=== PATIENT | male | born 1970 | race Caucasian/White ===

== ENCOUNTER → 2020-07-08 16:40 | Outpatient (CLI) | payer OTHER, SELFPAY ==
[2016-06-30 17:25] VITALS: BMI 41.1
[2020-07-08 18:54] LABS: Anion Gap 6 (5-15); BUN 18 mg/dL (7-18); BUN/Creat Ratio 15.4 RATIO (10-20); Calcium,Total 9.1 mg/dL (8.5-10.1); Chloride 104 mmol/L (98-107); Cholesterol 193 mg/dL (200); Creatinine, Serum 1.17 mg/dL (0.70-1.30); EST Glomerular Filtration Rate 70 mL/min (>60); Est Glom Filt Rate - Afr Amer 85 mL/min (>60); Glucose 92 mg/dL (74-106); High Density Lipoprotein 30 mg/dL; Potassium 3.1 mmol/L (3.5-5.1); Sodium Level 139 mmol/L (136-145); Triglycerides 206 mg/dL; Very Low Density Lipoprotein 41 mg/dL (5-40)
== END ==
LOC: MFPLAB 16:41
PROVIDERS: PCP Family Medicine; Referring Provider Family Medicine; Visit Provider Family Medicine
DX: I10 Essential (primary) hypertension (principal); E11.8 Type 2 diabetes mellitus with unspecified complications
CPT/HCPCS: 36415; 80048; 80061

== ENCOUNTER → 2020-07-22 14:27 | Outpatient (CLI) | payer OTHER, SELFPAY ==
[2016-06-30 17:25] VITALS: BMI 41.1
[2020-07-22 18:11] LABS: Anion Gap 7 (5-15); BUN 24 mg/dL (7-18); BUN/Creat Ratio 19.4 RATIO (10-20); Calcium,Total 9.3 mg/dL (8.5-10.1); Chloride 108 mmol/L (98-107); Creatinine, Serum 1.24 mg/dL (0.70-1.30); EST Glomerular Filtration Rate 66 mL/min (>60); Est Glom Filt Rate - Afr Amer 80 mL/min (>60); Glucose 84 mg/dL (74-106); Potassium 4.2 mmol/L (3.5-5.1); Sodium Level 140 mmol/L (136-145)
== END ==
PROVIDERS: PCP Family Medicine; Referring Provider Family Medicine; Visit Provider Family Medicine
DX: E87.6 Hypokalemia (principal)
CPT/HCPCS: 36415; 80048

== ENCOUNTER → 2020-10-08 11:28 | Outpatient (CLI) | payer OTHER, SELFPAY ==
[2016-06-30 17:25] VITALS: BMI 41.1
[2020-10-08 15:20] LABS: Absolute Lymphocyte Count 1.91 X10^3/uL (0.83-4.51); Absolute Neutrophil Count 4.3 X10^3/uL (2.0-7.7); Basophil# 0.01 X10^3/uL; Basophil% 0.1 % (0-1); Eosinophil# 0.11 X10^3/uL; Eosinophils% 1.6 % (0-5); Hematocrit 43.2 % (40-54); Hemoglobin 14.3 g/dL (13.0-16.5); Lymphocyte # 1.91 X10^3/ul (4.0); Lymphocyte % 27.2 % (19-41); Mean Corp Hgb Conc 33.1 g/dL (32-36); Mean Corpuscular Hgb 30.8 pg (27.0-32.0); Mean Corpuscular Volume 92.9 fL (80-94); Mean Platelet Vol. 10.1 fl (6.2-12.0); Monocyte# 0.71 X10^3/uL; Monocyte% 10.1 % (0-10); NRBC Flagged by Analyzer 0 % (0-5); Neutrophil # 4.25 X10^3/uL (2.7-7.7); Neutrophil % 60.6 % (47-70); Platelet Count 255 K/mm3 (150-450); RBC Distribution Width CV 13.7 % (11.6-14.6); Red Blood Count 4.65 M/mm3 (4.6-6.2)
[2020-10-08 15:48] LABS: Anion Gap 6 (5-15); BUN 22 mg/dL (7-18); BUN/Creat Ratio 17.7 RATIO (10-20); Calcium,Total 9.6 mg/dL (8.5-10.1); Chloride 103 mmol/L (98-107); Creatinine, Serum 1.24 mg/dL (0.70-1.30); EST Glomerular Filtration Rate 66 mL/min (>60); Est Glom Filt Rate - Afr Amer 80 mL/min (>60); Glucose 109 mg/dL (74-106); Potassium 4.1 mmol/L (3.5-5.1); Sodium Level 136 mmol/L (136-145); Thyroid Stim Hormone (TSH) 3.06 uIU/mL (0.358-3.74)
== END ==
PROVIDERS: PCP Family Medicine; Referring Provider Family Medicine; Visit Provider Family Medicine
DX: I10 Essential (primary) hypertension (principal); R20.9 Unspecified disturbances of skin sensation
CPT/HCPCS: 36415; 80048; 84443; 85025

== ENCOUNTER → 2021-05-25 15:59 | Outpatient (CLI) | payer OTHER, SELFPAY ==
[2021-05-25 18:40] LABS: PSA,Total - Annual Screen 0.69 ng/mL (0.00-4.00)
== END ==
PROVIDERS: PCP Family Medicine; Visit Provider Family Medicine
DX: Z00.00 Encounter for general adult medical examination without abnormal findings (principal); Z20.822 Contact with and (suspected) exposure to COVID-19; Z12.5 Encounter for screening for malignant neoplasm of prostate
CPT/HCPCS: 36415; 84153; 86769; G0103

== ENCOUNTER 2021-12-01 16:22 | Outpatient (CLI) | payer OTHER, SELFPAY ==
[2021-12-01 18:21] LABS: Anion Gap 7 (5-15); BUN 23 mg/dL (7-18); BUN/Creat Ratio 19.5 RATIO (10-20); Chloride 102 mmol/L (98-107); Cholesterol 169 mg/dL (200); Creatinine, Serum 1.18 mg/dL (0.70-1.30); EST Glomerular Filtration Rate 69 mL/min (>60); Est Glom Filt Rate - Afr Amer 84 mL/min (>60); Glucose 102 mg/dL (74-106); High Density Lipoprotein 31 mg/dL; Potassium 3.9 mmol/L (3.5-5.1); Sodium Level 135 mmol/L (136-145); Triglycerides 277 mg/dL; Very Low Density Lipoprotein 55 mg/dL (5-40)
== END 2021-12-01 23:59 | disposition home or self-care (01) ==
LOC: MFPLAB 16:24
PROVIDERS: PCP Family Medicine; Referring Provider Family Medicine; Visit Provider Family Medicine
DX: I10 Essential (primary) hypertension (principal)
CPT/HCPCS: 36415; 80048; 80061

== ENCOUNTER → 2022-05-28 | Outpatient (CLI) | payer OTHER, SELFPAY ==
--- NOTE | 2022-05-28 17:34 | CT_ITS ---
EXAM: CT ABDOMEN AND PELVIS WITH INTRAVENOUS CONTRAST CLINICAL INDICATION: Diverticulitis TECHNIQUE: Helically acquired images were obtained of the abdomen and pelvis with intravenous contrast. This CT exam was performed using one or more of the following dose reduction techniques: automated exposure control, adjustment of the mA and/or kV according to patient size, and/or use of iterative reconstruction technique. This report was created using Scaling[employer] report generation technology. CONTRAST: Oral and amp; IV Readi-CAT and amp; 100mL Isovue-300 COMPARISON: None. FINDINGS: LOWER THORAX: Unremarkable. Lung bases are clear. No cardiomegaly. No significant pericardial effusion. ABDOMEN: LIVER: Unremarkable. Homogeneous. No focal mass. GALLBLADDER AND BILE DUCTS: Unremarkable. No calcified gallstones. No gallbladder distention or wall edema. No intra- or extrahepatic biliary ductal dilation. PANCREAS: Unremarkable. No focal cystic or solid mass. SPLEEN: Unremarkable. Normal size without focal cystic or solid mass. ADRENALS: Unremarkable. No nodules. KIDNEYS AND URETERS: Unremarkable. Normal renal size and position. No hydronephrosis. STOMACH AND BOWEL: Diverticular disease of the colon, but there is no evidence of acute diverticulitis. No stomach or bowel distention. PELVIS: APPENDIX: The appendix is normal. BLADDER: Unremarkable. REPRODUCTIVE: Unremarkable as visualized. No mass. ABDOMEN and PELVIS: INTRAPERITONEAL SPACE: Unremarkable. No ascites or other fluid collection. No free air. BONES/JOINTS: Degenerative changes of the spine. No suspicious lytic or blastic abnormality. SOFT TISSUES: Unremarkable. No discrete abdominal or pelvic wall hernia. VASCULATURE: Unremarkable. Abdominal aorta is non-dilated. LYMPH NODES: Stranding and slightly prominent lymph nodes in the mesentery surrounding branches of the superior mesenteric vessels. CT/Abdomen/Pelvis WITH Contrast IMPRESSION: 1. Stranding and slightly prominent lymph nodes in the mesentery surrounding branches of the superior mesenteric vessels. 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 2. No evidence of diverticulitis. Electronically Signed: Melvin Leal MD at 7:37 EDT ,
[2022-05-28 18:20] LABS: CREATININE FINGERSTICK < 0.9 mg/dL (0.70-1.30); EGFR FINGERSTICK > 60.0000 mL/min (>60)
== END | disposition home or self-care (01) ==
LOC: CT 17:31
PROVIDERS: PCP Family Medicine; Visit Provider Family Medicine
DX: K57.92 Diverticulitis of intestine, part unspecified, without perforation or abscess without bleeding (principal)
CPT/HCPCS: 74177; Q9967

== ENCOUNTER → 2022-06-07 | Outpatient (CLI) | payer OTHER, SELFPAY ==
[2022-06-07 18:15] LABS: PSA,Total - Annual Screen 0.56 ng/mL (0.00-4.00)
== END | disposition home or self-care (01) ==
LOC: MFPLAB 16:11
PROVIDERS: PCP Family Medicine; Visit Provider Family Medicine
DX: Z00.00 Encounter for general adult medical examination without abnormal findings (principal); Z12.5 Encounter for screening for malignant neoplasm of prostate
CPT/HCPCS: 36415; 84153; G0103

== ENCOUNTER → 2022-12-01 | Outpatient (CLI) | payer OTHER, SELFPAY ==
[2022-12-01 18:45] LABS: Anion Gap 6 (5-15); BUN 20 mg/dL (7-18); BUN/Creat Ratio 16.8 RATIO (10-20); Calcium,Total 9.8 mg/dL (8.5-10.1); Chloride 102 mmol/L (98-107); Cholesterol 192 mg/dL (200); Creatinine, Serum 1.19 mg/dL (0.70-1.30); EST Glomerular Filtration Rate 68 mL/min (>60); Est Glom Filt Rate - Afr Amer 83 mL/min (>60); Glucose 135 mg/dL (74-106); High Density Lipoprotein 33 mg/dL; Potassium 3.7 mmol/L (3.5-5.1); Sodium Level 136 mmol/L (136-145); Thyroid Stim Hormone (TSH) 2.41 uIU/mL (0.358-3.74); Triglycerides 282 mg/dL; Very Low Density Lipoprotein 56 mg/dL (5-40)
== END | disposition home or self-care (01) ==
LOC: MFPLAB 16:36
PROVIDERS: PCP Family Medicine; Referring Provider Family Medicine; Visit Provider Family Medicine
DX: I10 Essential (primary) hypertension (principal); N52.9 Male erectile dysfunction, unspecified
CPT/HCPCS: 36415; 80048; 80061; 84443

== ENCOUNTER → 2023-01-06 | Outpatient (CLI) | payer OTHER, SELFPAY ==
--- NOTE | 2023-01-06 17:55 | CT_ITS ---
EXAM: CT ABDOMEN AND PELVIS WITH INTRAVENOUS CONTRAST CLINICAL INDICATION: ABD PAIN,MESENTERIC PANNICULITIS TECHNIQUE: Helically acquired images were obtained of the abdomen and pelvis with intravenous contrast. This CT exam was performed using one or more of the following dose reduction techniques: automated exposure control, adjustment of the mA and/or kV according to patient size, and/or use of iterative reconstruction technique. CONTRAST: IV 100mL Isovue-300 COMPARISON: 05/28/2022 FINDINGS: LOWER THORAX: Unremarkable. Lung bases are clear. No cardiomegaly. No significant pericardial effusion. ABDOMEN: LIVER: The liver is decreased in attenuation compatible with fatty infiltration. GALLBLADDER AND BILE DUCTS: Unremarkable. No calcified gallstones. No gallbladder distention or wall edema. No intra- or extrahepatic biliary ductal dilation. PANCREAS: Unremarkable. No focal cystic or solid mass. SPLEEN: Unremarkable. Normal size without focal cystic or solid mass. ADRENALS: Unremarkable. No nodules. KIDNEYS AND URETERS: Unremarkable. Normal renal size and position. No hydronephrosis. STOMACH AND BOWEL: There is sigmoid diverticulosis with minimal inflammation which may represent sigmoid diverticulitis. No stomach or bowel distention. PELVIS: APPENDIX: No evidence of acute appendicitis. BLADDER: Unremarkable. REPRODUCTIVE: Unremarkable as visualized. No mass. ABDOMEN and PELVIS: INTRAPERITONEAL SPACE: Unremarkable. No ascites or other fluid collection. No free air. BONES/JOINTS: Unremarkable. No suspicious lytic or blastic abnormality. SOFT TISSUES: Unremarkable. No discrete abdominal or pelvic wall hernia. VASCULATURE: Unremarkable. Abdominal aorta is non-dilated. LYMPH NODES: There is minimal inflammation and lymph nodes surrounding the superior mesenteric artery which is unchanged from the reference exam. CT/Abdomen/Pelvis WITH Contrast IMPRESSION: 1. Sigmoid diverticulosis with trace inflammation which may represent early diverticulitis. There is no abscess or perforation. 2. 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 This is unchanged from the reference exam. Electronically Signed: Ovidio Soria MD at 21:15 EDT ,
[2023-01-07 07:01] LABS: CREATININE FINGERSTICK 0.9 mg/dL (0.70-1.30)
[2023-01-07 07:02] LABS: EGFR FINGERSTICK > 60 mL/min (>60)
== END | disposition home or self-care (01) ==
LOC: CT 17:52
PROVIDERS: PCP Family Medicine
DX: K65.4 Sclerosing mesenteritis (principal); R10.84 Generalized abdominal pain
CPT/HCPCS: 74177; Q9967

== ENCOUNTER 2023-11-16 18:00 | Outpatient (RCR) | payer OTHER, SELFPAY ==
--- NOTE | 2023-10-19 18:36 | HP.PTEVAL_ITS ---
Patient's Visit Information Visit Information Visit Information: LIZETTE CAN is a 53 year old M referred to Physical Therapy by Dr. Nikky Sherwood MD with a diagnosis of RC tendonitis. Date of Evaluation: 10/19/23 Physical Therapist: JAVI Killian Visit Plan Frequency: 2x /Week Duration: 6 Weeks Plan: FOCUS ON POSTURE/Scapular retraction with below 90 degree RC strength 2X/ week for 6 weeks for R shoulder AROM, AAROM/PROM, scapular and postural strength, RC strength with HEP. May try US if need to decrease inflammation.... HEP: blue mid rows and ice R shoulder. Work on increasing scapular retraction with ADL's/posture etc Subjective Subjective: He is R handed. He has had a moderate pain that is there. He has complete movement. If he sleeps on his R shoulder he will have pain. He has increase popping as well. His hand has been going numb too. The pain is usually every day. On Tuesday he tried to throw something and that was a no go. He had no x-ray or MRI. He has had this order since May. He can not sleep on that shoulder. He usually sleeps in his chair so that he does not bother him. Pain R shoulder pain: Pain Intensity (Out of 10): 4 Pain Intensity Range: 7 Comment: with movement overhead Objective Objective: R handed: AROM: R flexion 142 and L 147 R ABD 140 and L 161 R ER 30 abd L 41 R IR L1 and T12 MMT R flex 17.2 and L 21 R ABD 18.1 and L 20.2 R ER 16.6 and L 15.6 R IR 19.2 and L 17.2 Tender under the R Acromion and lateral to it. Posture: rounded shoulders/anterior shoulders + HK for pain PROM L shoulder: pain at end range elevation Balance/Special Test Scores Quick DASH Score: 29.5450 Goals Goal 1:: I HEP Goal Time Frame: 6-8 Weeks Goal 2:: Sit with upright posture during treatment sessions Goal Time Frame: 6-8 Weeks Goal 3:: Decrease R shoulder pain by 50% with overhead activities Goal Time Frame: 6-8 Weeks Goal 4:: Increase R shoulder strength (at the time of the eval: R flex 17.2 and L 21 R ABD 18.1 and L 20.2 R ER 16.6 and L 15.6 R IR 19.2 and L 17.2) Goal 5:: Increase pain free R shoulder AROM (at the time of the eval: AROM: R flexion 142 and L 147 R ABD 140 and L 161 R ER 30 abd L 41 R IR L1 and T12). Rehabilitation Potential Rehabilitation Potential: Good Anticipated Interventions Patient/Client Instruction: Educate patient on: Condition and Plan of Care For the Purpose of:: To decrease pain, To decrease swelling/inflammation, To increase ROM, To improve nutrient delivery to tissue, To improve muscle performance and motor function, To improve ability to perform ADL's, To improve performance and independence with ADL's, To decrease level of supervision to perform tasks, To improve ability of physical actions for home/community/work/leisure, To improve health of tissue, To decrease soft tissue restriction and To increase flexibility/ROM Therapeutic Exercise to Include: Strength training, Postural training, Flex ibilty training, Active ROM and Scapular Strength/Stabilization For the Purpose of:: To decrease pain, To decrease swelling/inflammation, To increase ROM, To improve nutrient delivery to tissue, To improve muscle performance and motor function, To improve ability to perform ADL's, To increase tolerance to activity/condition/position, To improve performance and independence with ADL's, To decrease level of supervision to perform tasks, To improve gait and locomotor functions, To improve health of tissue, To decrease soft tissue restriction and To increase flexibility/ROM Manual Therapy Techniques to Include: Mobilization, Passive ROM and Soft tissue mobilization For the Purpose of:: To decrease pain, To decrease swelling/inflammation, To increase ROM, To improve muscle performance and motor function and To improve ability to perform ADL's Functional electric stimulation: Yes Cryotherapy (ice pack, ice massage): Yes Ultrasound (thermal/non thermal): Yes For the Purpose of:: To decrease pain, To decrease swelling/inflammation, To increase ROM and To improve nutrient delivery to tissue Text: Thank you for the opportunity to evaluate your patient. For Medicare and Medicare HMO plans, please review the plan of care and approve it. It will need to be FAXED BACK to us at [phone] for Medicare purposes. For Medicare only, by signing this I certify the plan of care. Please let me know if there are questions or concerns regarding this plan of care. Physician Signature: Date:
--- NOTE | 2023-11-16 18:29 | HP.PTDCSUM ---
Discharge Summary D/C summary: It has been my pleasure to treat LIZETTE CAN referred by Dr. Nikky Sherwood MD, with the diagnosis of RC tendonitis for a total of 8 visit(s). Discharge Date: 11/16/23 Please see the following information for a summary of their discharge status. Subjective Subjective: Pt reports that he is better. He reports when he falls asleep on it. Every now and then it hurts during the day. Pain R shoulder pain: Pain Intensity (Out of 10): 2 Overall Improvement % Improvement: 75 Objective Objective/Function: R flex 20.5 and L 21 R ABD 18.1 and L 20.2 R ER 16.6 and L 15.6 R IR 19.2 and L 17.2) R flexion 158 and L 147 R ABD 165 and L 161 R ER 49 abd L 41 R IR T12 and T12). Goals Goal 1:: I HEP Goal Progress: Goal Met Goal 2:: Sit with upright posture during treatment sessions Goal Progress: Progressing Goal 3:: Decrease R shoulder pain by 50% with overhead activities Goal Progress: Goal Met Goal 4:: Increase R shoulder strength (at the time of the eval: R flex 17.2 and L 21 R ABD 18.1 and L 20.2 R ER 16.6 and L 15.6 R IR 19.2 and L 17.2) Goal Progress: Goal Met Goal 5:: Increase pain free R shoulder AROM (at the time of the eval: AROM: R flexion 142 and L 147 R ABD 140 and L 161 R ER 30 abd L 41 R IR L1 and T12). Goal Progress: Goal Met Plan Plan: FOCUS ON POSTURE/Scapular retraction with below 90 degree RC strength 2X/ week for 6 weeks for R shoulder AROM, AAROM/PROM, scapular and postural strength, RC strength with HEP. May try US if need to decrease inflammation.... D/C Information Discharge Comments: DC PT to HEP d/c sentence: If there are questions or concerns regarding this patient's physical therapy, please feel free to call me at [phone]. Thank you for the referral of this patient. Sincerely, Angie Turcios, MPT Balance/Gait/Functional tests Balance/Special Test Scores Quick DASH Score: 13.6350 Improvement % Improvement: 75
== END 2023-11-16 19:00 | disposition home or self-care (01) ==
LOC: PT 18:00
PROVIDERS: PCP Family Medicine; Referring Provider Family Medicine; Visit Provider Family Medicine
DX: M75.101 Unspecified rotator cuff tear or rupture of right shoulder, not specified as traumatic (principal)
CPT/HCPCS: 97110; 97161; 97530

== ENCOUNTER → 2023-12-27 | Outpatient (CLI) | payer OTHER, SELFPAY ==
[2023-12-27 18:18] LABS: Anion Gap 5 (5-15); BUN 19 mg/dL (7-18); BUN/Creat Ratio 16.5 RATIO (10-20); Calcium,Total 9.4 mg/dL (8.5-10.1); Chloride 102 mmol/L (98-107); Cholesterol 179 mg/dL (200); Creatinine, Serum 1.15 mg/dL (0.70-1.30); EST Glomerular Filtration Rate 71 mL/min (>60); Est Glom Filt Rate - Afr Amer 86 mL/min (>60); Glucose 137 mg/dL (74-106); High Density Lipoprotein 31 mg/dL; Potassium 3.8 mmol/L (3.5-5.1); Sodium Level 134 mmol/L (136-145); Triglycerides 243 mg/dL; Very Low Density Lipoprotein 49 mg/dL (5-40)
[2023-12-27 18:21] LABS: Protein, Urine (Random) < 6.0 mg/dL (<11.9)
== END | disposition home or self-care (01) ==
LOC: MFPLAB 16:17
PROVIDERS: PCP Family Medicine; Visit Provider Family Medicine
DX: I10 Essential (primary) hypertension (principal)
CPT/HCPCS: 36415; 80048; 80061; 82570; 84156

== ENCOUNTER 2024-04-24 08:27 | Emergency (ER) | payer OTHER, SELFPAY ==
[2024-04-24 08:27] VITALS: BP 152/95; PULSE 77; RESP 14; TEMP 37.1; O2SAT 98; BMI 41.3
--- NOTE | 2024-04-24 08:35 | EX.ED.DYSGE1 ---
HPI History of Present Illness Chief Complaint: Abd Pain [facility] Medical History (Updated 04/24/24 @ 11:[address] Nahid Vick, DO) Encounter for examination required by Department of Transportation (DOT) Hypertension Home Medications ?Medication ?Instructions ?Recorded ?Last Taken ?Type potassium chloride 20 mEq 20 meq PO DAILY 06/21/23 Unknown History tablet,extended release(part/cryst) tadalafil 20 mg tablet 20 mg PO DAILY 06/21/23 Unknown History prednisone 20 mg tablet 40 mg (2 x 20 mg) PO DAILY 5 days 04/24/24 Unknown Rx #10 tabs Allergy/AdvReac Type Severity Reaction Status Date / Time No Known Allergies Allergy Verified 04/24/24 08:28 Surgical History (Updated 06/21/23 @ 17:15 by Kanchan Sr) History of tonsillectomy and adenoidectomy History of vasectomy Social History Smoking Status: Never smoker EXAM Physical Exam Const Vital Signs: 04/24/24 08:27 04/24/24 10:54 Temperature 98.7 F Temperature Source Temporal Pulse Rate 77 57 L Respiratory Rate 14 13 Blood Pressure 152/95 H 128/88 H Blood Pressure Mean 114 101 Pulse Ox 98 94 Oxygen Delivery Method Room Air Room Air MDM MDM MDM Narrative Medical decision making narrative: HISTORY OF PRESENT ILLNESS: 53 male presents with concern for lower abdominal pain and difficulty urinating. Notes symptoms started 2-3 weeks ago. Worsened over the last several days. Patient endorses left lower quadrant abdominal pain that he described as dull, constant, not associated with eating or bowel movement. He denies right lower quadrant pain. Denies nausea, vomiting, fever, chest pain, shortness of breath. Does note difficulty urinating. Denies urinary tension but notes some pain and discomfort with urination recently. He is not sexually active. Denies any testicular pain rashes or other lesions. Denies history of abdominal surgeries. Last bowel movement was yesterday. Denies melena or hematochezia. He does not drink alcohol. Denies any bulging or herniations. He reports history of diverticulosis that his doctor told him was not a big deal. REVIEW OF SYSTEMS: Pertinent positives: Lower abdominal pain, difficulty urinate Pertinent negatives: Chest pain, shortness of breath, hematuria, melena, hematochezia, vomiting, fever PHYSICAL EXAM: Nursing triage notes reviewed, Vital signs reviewed Constitutional: please see mdm HENT: MMM Eyes: Pupils equal round and reactive to light, Extraocular muscles intact Neck: No stridor, no JVD, full neck ROM Lungs: Clear to auscultation, No wheezing or rales. No increased work of breathing, no conversational dyspnea, no accessory muscle use, no nasal flaring. No respiratory distress noted Heart: Regular rate and rhythm, No murmurs, No rubs and No gallops, 2+ distal pulses (radial, femoral, posterior tibial) in all extremities Abdomen: Soft, left lower quadrant TTP, but no rigidity, rebound or guarding, no obvious peritoneal signs, no palpable pulsatile abdominal masses, no auscultated abdominal bruit : No CVAT Extremities: No edema Neuro: No focal neurological deficits, cranial nerves II through XII intact, 5/5 strength in all extremities. Intact sensation to light touch in all extremities, 2+ reflexes bilateral patella tendons. Normal gait. No ataxia. Skin: No rash or lesions noted MEDICAL DECISION MAKING: Chief Complaint: Lower abdominal pain External records reviewed: Prior imaging reviewed: CT scan of the abdomen pelvis was reviewed from December 2022 which showed sigmoid diverticulosis with trace inflammation, early diverticulitis, no abscess or perforation Factors affecting care: Past history of hypertension Social determinants of health: none History obtained from others: none Consults: none [facility] Narrative: The patient was initially hypertensive with a blood pressure 152/95 otherwise afebrile. Abdominal exam overall benign with no obvious peritoneal signs however there was left lower quadrant TTP. No obvious testicular tenderness, no obvious hernia. I considered the following differential diagnosis: AAA, small bowel obstruction, abdominal perforation, appendicitis, pancreatitis, hepatobiliary pathology (acute cholecystitis), mesenteric ischemia, pathology (ie nephrolithiasis, pyelonephritis). I obtained a broad lab and imaging workup to further elucidate etiology of patient complaint. Specifically ruling out signs of diverticulitis, appendicitis, perforation, obstruction, UTI, pyelonephritis nephrolithiasis. I treat the patient symptomatically with 1 L normal saline for initial resuscitation, 15 mg IV Toradol for initial pain control. ALL IMAGES (IF OBTAINED) HAVE BEEN PERSONALLY REVIEWED AND INTERPRETED BY MYSELF. CBC with leukocytosis (suggestive of systemic inflammation), no anemia, no thrombocytopenia CMP without evidence of significant electrolyte disturbances, no anion gap, no ADRIANA, no evidence of valvular obstruction, hepatobiliary Lipase is wnl indicating no pancreatic inflammation. UA without inflammation to suggest UTI, no hematuria or inflammation to suggest nephrolithiasis CT scan of the abdomen pelvis showed no evidence of obvious perforation, obstruction, diverticulitis. Showed mesenteric panniculitis On reassessment patient's blood pressure improved to 128/88. Repeat abdominal exam remained benign. Discussed results of his labs and CT scan. Discussed recommendations, follow-up and return precautions. The patient and/or family, caregivers express understanding. The patient and/or family, caregivers agrees with the plan. Shared decision making: I will have a discussion with the patient and or visitors regarding risk/benefits of further testing or admission. They will be made aware of of the risk/benefits inherent in this decision they will be given the opportunity to voice understanding. Total critical care time today provided was at least 0 [] minutes. This excludes separately billable procedures. Critical care time (if documented) is secondary to the patient having high probability of clinically significant/life threatening deterioration in the patient's condition which required my urgent intervention. Impression: 1. Abdominal pain 2. Mesenteric panniculitis Dispo: Discharge This note was generated with Goshi dictation software. It may contain incorrect words, spelling, and punctuation that were not noted in review of the chart prior to signing. Lab Data Labs: Laboratory Results - last 24 hr 04/24/24 04/24/24 08:54 09:45 WBC 11.5 H RBC 5.14 Hgb 15.9 Hct 47.5 MCV 92.4 MCH 30.9 MCHC 33.5 RDW Std Deviation 45.7 H RDW Coeff of [place] 13.3 Plt Count 271 MPV 9.3 Immature Gran % (Auto) 0.400 Neut % (Auto) 73.9 H Lymph % (Auto) 15.0 L Shannon % (Auto) 9.5 Eos % (Auto) 1.0 Baso % (Auto) 0.2 Absolute Neuts (auto) 8.5 H Absolute Lymphs (auto) 1.72 Nucleated RBC % 0 Sodium 140 Potassium 4.0 Chloride 104 Carbon Dioxide 29.0 Anion Gap 7 BUN 21 H Creatinine 1.09 Estim Creat Clear Calc 95.00 Est GFR (MDRD) Af Amer 91 Est GFR (MDRD) Non-Af 75 BUN/Creatinine Ratio 19.3 Glucose 106 Calcium 9.5 Total Bilirubin 0.20 AST 19 ALT 34 Alkaline Phosphatase 68 Total Protein 8.2 Albumin 3.5 Globulin 4.7 H Albumin/Globulin Ratio 0.7 L Lipase 58 Urine Color Yellow Urine Clarity Clear Urine pH 6.0 Ur Specific [place] 1.020 Urine Protein Negative Urine Glucose (UA) Normal Urine Ketones Negative Urine Occult Blood Negative Urine Nitrite Negative Urine Bilirubin Negative Urine Urobilinogen Normal Ur Leukocyte Esterase Negative Urine RBC 0 SEEN Urine WBC 0 SEEN Ur Squamous Epith Cells 0 SEEN Urine Bacteria 0 SEEN Urine Mucus 0 SEEN Radiography Diagnostic Testing: Clinical Impression(s) from Imaging Studies Abdomen/Pelvis CT 04/24/24 08:52 IMPRESSION: No uncomplicated acute sigmoid diverticulitis. Fatty infiltration of the liver. Stable increased markings in the peritoneal fat in the root of the mesentery suggestive of nonspecific mesenteric panniculitis. Electronically Signed: Wyatt Christensen MD at 11:18 EDT , Discharge Plan Triage Chief Complaint: Abd Pain ED Provider: Nahid Vick Dx/Rx/DC Orders Clinical Impression: Mesenteric panniculitis Instructions: ED Adenitis, Mesenteric Prescriptions: New prednisone 20 mg tablet 40 mg PO DAILY 5 Days Qty: 10 0RF No Action potassium chloride 20 mEq tablet,ER particles/crystals 20 meq PO DAILY tadalafil 20 mg tablet 20 mg PO DAILY Stand Alone Forms: ED Work / School Excuse Primary Care Provider: Nikky Sherwood Referrals: Friend,Alin, DO [Med Staff - Active Staff] - Activity Restrictions/Additional Instructions: Thank you for trusting us with your care today! Your labs and CT scan were consistent with mesenteric panniculitis. This is an inflammatory condition (autoimmune in origin) there is also an inflammation and pain in her abdomen. Treatment is anti-inflammatories. Follow-up with his gastroenterology. Please take the prednisone as prescribed. Attached are General instructions for intra-abdominal inflammation. For the record we did not see enlarged lymph nodes in your abdomen however it was the closest set of recommendations I could find the detail when you should return to the ED. Please take Tylenol (2 pills, 650 mg), ibuprofen (2 pills, 400 mg) every 6 hours as needed for pain and fever control. Please return to the emergency department if your symptoms change or worsen. Please follow with Gastroenterology for further outpatient evaluation and management. Print Language: [place] Disposition Disposition: Home, Self Care
--- NOTE | 2024-04-24 08:52 | CT_ITS ---
STUDY: CT ABDOMEN AND PELVIS WITH CONTRAST REASON FOR EXAM: Male, 53 years old. Abdominal pain, LLQ TTP -- IV PO Contrast RADIATION DOSAGE (If Supplied By Facility): CTDIvol = ( 18.68 ) mGy, DLP = ( 1338.88 ) mGycm TECHNIQUE: Transaxial images were obtained from the dome of the diaphragm to the symphysis pubis with oral contrast. Oral and amp; IV Gastrografin and amp; 100mL Isovue-300 was administered. Sagittal and coronal images were reconstructed. Individualized dose optimization techniques were used for this CT. COMPARISON: None. FINDINGS: The visualized lung bases are unremarkable. Coronary artery calcification. There is decreased attenuation of the liver consistent with steatosis. Normal gallbladder and extrahepatic biliary system. Normal spleen. Normal pancreas. Normal bilateral adrenal glands. Normal right kidney. Normal left kidney. There is a small hiatal hernia. Normal small intestine. There is diverticulosis, with thickening of the colon wall, and pericolonic inflammation changes consistent with acute diverticulitis. The appendix is visualized and appears normal. There is scattered atherosclerotic calcification of the abdominal aorta and its major visceral branches, without a demonstrated aneurysm. Normal inferior vena cava. Normal retroperitoneum. Nonspecific increased markings in the mesenteric fat deep in the root of the mesentery. This is unchanged as compared to prior study. This may be related to the sigmoid diverticulitis. Distended urinary bladder. There are prostatic calcifications. Normal abdominal wall. Normal osseous structures. CT/Abdomen/Pelvis WITH Contrast IMPRESSION: No uncomplicated acute sigmoid diverticulitis. Fatty infiltration of the liver. Stable increased markings in the peritoneal fat in the root of the mesentery suggestive of nonspecific mesenteric panniculitis. Electronically Signed: Wyatt Christensen MD at 11:18 EDT ,
[2024-04-24] MEDS: Ondansetron 4 MG/2 ML Vial IV (08:57)
[2024-04-24] MEDS: Ketorolac 15 MG/ML Vial IV (08:57)
[2024-04-24] MEDS: 0.9% Normal Saline (1000mL) 1,000 ML 999 ML IV (08:57)
[2024-04-24 09:14] LABS: Absolute Lymphocyte Count 1.72 X10^3/uL (0.83-4.51); Absolute Neutrophil Count 8.5 X10^3/uL (2.0-7.7); Basophil# 0.02 X10^3/uL; Basophil% 0.2 % (0-1); Eosinophil# 0.12 X10^3/uL; Hematocrit 47.5 % (40-54); Hemoglobin 15.9 g/dL (13.0-16.5); Lymphocyte # 1.72 X10^3/ul (0.83-4.51); Mean Corp Hgb Conc 33.5 g/dL (32-36); Mean Corpuscular Hgb 30.9 pg (27.0-32.0); Mean Corpuscular Volume 92.4 fL (80-94); Mean Platelet Vol. 9.3 fl (6.2-12.0); Monocyte# 1.09 X10^3/uL; Monocyte% 9.5 % (0-10); NRBC Flagged by Analyzer 0 % (0-5); Neutrophil # 8.49 X10^3/uL (2.7-7.7); Neutrophil % 73.9 % (47-70); Platelet Count 271 K/mm3 (150-450); RBC Distribution Width CV 13.3 % (11.6-14.6); RBC Distribution Width SD 45.7 fl (35.1-43.9); Red Blood Count 5.14 M/mm3 (4.6-6.2); White Blood Count 11.5 K/mm3 (4.4-11.0)
[2024-04-24 09:48] LABS: ALB/GLOB Ratio 0.7 RATIO (0.9-2.4); AST(SGOT) 19 U/L (15-37); Alanine Aminotransfer ALT/SGPT 34 U/L (16-61); Albumin, Serum 3.5 g/dL (3.2-5.0); Alkaline Phosphatase 68 U/L (45-117); Anion Gap 7 (5-15); BUN 21 mg/dL (7-18); BUN/Creat Ratio 19.3 RATIO (10-20); Calcium,Total 9.5 mg/dL (8.5-10.1); Chloride 104 mmol/L (98-107); Creatinine, Serum 1.09 mg/dL (0.70-1.30); EST Glomerular Filtration Rate 75 mL/min (>60); Est Glom Filt Rate - Afr Amer 91 mL/min (>60); Globulin 4.7 g/dL (2.2-4.2); Glucose 106 mg/dL (74-106); Lipase 58 U/L (13-75); Protein, Total 8.2 g/dL (6.4-8.2); Sodium Level 140 mmol/L (136-145)
[2024-04-24 09:51] LABS: Bacteria 0 SEEN /hpf (None Seen); Mucous, Urine 0 SEEN /hpf (<or=2+); Red Blood Cells-Urine 0 SEEN /hpf (0-5); Squamous Epithelial Cells - UA 0 SEEN /hpf (0-5); White Blood Cells 0 SEEN /hpf (0-5)
[2024-04-24 09:57] LABS: Color, Urine Yellow (Yellow); Glucose, Dipstick Normal (Normal); Ketone-Dipstick Negative (Negative); Leukocyte Esterase-Dipstick Negative /ul (Negative); Nitrite-Dipstick Negative (Negative); Occult Blood-Urine Negative /ul (Negative); Protein-Dipstick Negative (Negative); Urine Bilirubin Dipstick Negative (Negative); Urine Clarity Clear (Clear); Urine Urobilinogen Normal (Normal)
[2024-04-24 10:54] VITALS: BP 128/88; PULSE 57; RESP 13; O2SAT 94
[2024-04-24 11:29] VITALS: BP 119/79; PULSE 54; RESP 16; TEMP 36.6; O2SAT 99
== END 2024-04-24 12:10 | disposition home or self-care (01) ==
PROVIDERS: Emergency Provider Emergency Medicine; PCP Family Medicine; Visit Provider Emergency Medicine
DX: R10.32 Left lower quadrant pain (principal); K65.4 Sclerosing mesenteritis; I10 Essential (primary) hypertension; Z98.52 Vasectomy status
CPT/HCPCS: 74177; 80053; 81001; 83690; 85025; 96361; 96374; 96375; 99282; J7030; Q9967; A4216; J2405

== ENCOUNTER → 2025-08-07 | Outpatient (CLI) | payer BC, SELFPAY ==
[2025-08-07 10:40] LABS: Creatinine, Urine (random) 160.00 mg/dL (39.00-259.00); Microalbumin,Random Urine < 12.0 mg/L (<20 mg/L)
[2025-08-07 10:44] LABS: Anion Gap 12 (5-15); BUN 26 mg/dL (4-19); BUN/Creat Ratio 24.7 RATIO (10-20); Calcium,Total 9.6 mg/dL (7.6-11.0); Carbon Dioxide 25.0 mmol/L (21.0-32.0); Chloride 101 mmol/L (98-108); Cholesterol 199 mg/dL (<=200); Glucose 106 mg/dL (70-99); Low Density Lipoprotein Calc. 138 mg/dL; Potassium 3.9 mmol/L (3.3-5.1); Triglycerides 136 mg/dL; Very Low Density Lipoprotein 27 mg/dL (5-40); cholesterol:hdl ratio screen 5.53
== END | disposition home or self-care (01) ==
LOC: MFPLAB 08:39
PROVIDERS: PCP Family Medicine
DX: I10 Essential (primary) hypertension (principal)
CPT/HCPCS: 36415; 80048; 80061; 82043; 82570